=== PATIENT | male | born 1985 | race Caucasian/White ===

== ENCOUNTER → 2017-04-03 | Outpatient (CLI) | payer OTHER ==
[~2017-04-03] MED LIST: FLEXERIL10 MG PO; MOTRIN800 MG PO; OCUFLOX 0.100 DROP/5 BOTH EYES; VICODIN 5-3001 EACH PO
== END | disposition home or self-care (01) ==
LOC: CDC 08:13
DX: G35 Multiple sclerosis (principal)
CPT/HCPCS: 93000

== ENCOUNTER → 2017-04-03 | Outpatient (CLI) | payer OTHER | END | disposition home or self-care (01) | LOC: CDC 15:06 | DX: G35 Multiple sclerosis (principal) | CPT/HCPCS: 93000 ==

== ENCOUNTER 2017-04-04 23:48 | Emergency (ER) | payer OTHER ==
[~2017-04-04] VITALS: Ht 182.9 cm; Wt 102.2 kg
[2017-04-05 00:53] VITALS: BP 136/88
== END 2017-04-05 00:54 | disposition home or self-care (01) ==
LOC: EME 23:48
DX: M62.838 Other muscle spasm (principal); M54.2 Cervicalgia; G35 Multiple sclerosis
CPT/HCPCS: 93005; 99281; 99284